=== PATIENT | female | born 1965 | race Caucasian/White ===

== ENCOUNTER 2018-07-09 00:32 | Emergency (ER) | payer BC ==
[2018-07-09] MEDS ORDERED: [UNRECOGNIZED DRUG - OTHER] PO (00:46)
--- NOTE | 2018-07-09 00:49 | ER Report ---
History and Physical Time Seen By MD: 00:49 Hx. of Stated Complaint: patient has had a pain that started up in the right upper quadrant of abdomen and then went to right flank and now kind of goes over to left flank as well. patient states the pain has been getting progressively worse and then 2 hours ago pain has become as so bad that patient cant get comfortable. HPI/ROS CHIEF COMPLAINT: right ruq and flank pain HISTORY OF PRESENT ILLNESS: This is a 53 year old female. She has had pain in the right upper abdomen starting off and on for a few days and thought this was rib or muscle pain. Worsened tonight, with pain in the right flank now as well. Worsens with movement and with deep breaths. Not short of breath, but somewhat difficult to take deep breaths. Has had mild nausea, no vomiting. She has no diarrhea, constipation or bowel problems. No urinary changes such as dysuria, frequency or urgency. No chest pain or palpitations. No fevers or chills. Mild cough, but no sore throat or runny nose. No history of gallbladder, liver, pancreatitis. No other musculoskeletal pain. Allergies: Coded Allergies: grass pollen (Verified Allergy, Intermediate, 07/09/18) Uncoded Allergies: tree pollen (Allergy, Intermediate, 07/09/18) Home Meds Reported Medications [acetane] No Conflict Check, 1 CAP PO BID for hot flashes 07/09/18 Reviewed Nurses Notes: Yes Constitutional Vital Sign - Last 24 Hours 07/09/18 00:41 Temp 98.1 Pulse 82 Resp 16 B/P (MAP) 153/88 Pulse Ox 94 O2 Delivery Room Air Physical Exam General Appearance: The patient is alert. No acute distress. Eyes: Pupils are equal, round. No pallor, injection or icterus. ENT: Mucous membranes are moist. Normal oral mucosa. Posterior oropharynx is normal. Neck: Supple and non tender. No lymphadenopathy. Respiratory: Lungs are clear to auscultation. Has some pain with deep breaths, but mild. Cardiovascular: Regular rate and rhythm. No murmurs, gallops or rubs. Normal capillary refill. Gastrointestinal: Abdomen is soft, tender in RUQ with positive Casiano sign. Nondistended. No rebound or guarding. Normal active bowel sounds. No costovertebral angle tenderness with percussion. Neurological: Alert and oriented x3. Skin: Warm and dry. No rashes. Musculoskeletal: No tenderness in palpation of the cervical, thoracic and lumbar spine. DIFFERENTIAL DIAGNOSIS: After history and physical exam, differential diagnosis was considered for abdominal pain including but not limited to appendicitis, cholecystitis, gastroenteritis, colitis, pulmonary embolism or cardiac problem, kidney stones and urinary tract infection. Medical Decision Making Data Points Result Diagram: 07/09/18 0124 07/09/18 0124 Laboratory Hematology Test 07/09/18 00:36 07/09/18 01:24 Urine Color Straw Urine Clarity Clear Urine pH 7.0 pH (4.8-9.5) Urine Specific [place] 1.004 Urine Protein Negative mg/dL (NEGATIVE) Urine Glucose (UA) Negative mg/dL (NEGATIVE) Urine Ketones Negative mg/dL (NEGATIVE) Urine Blood Negative (NEGATIVE) Urine Nitrite Negative (NEGATIVE) Urine Bilirubin Negative (NEGATIVE) Urine Urobilinogen Negative mg/dL (0.2-1.9) Urine Leukocyte Esterase Negative (NEGATIVE) Urine RBC 1 /HPF (0-2/HPF) Urine WBC <1 /HPF (0-5/HPF) Urine Squamous Epithelial Cells Few /LPF (</=FEW) Urine Bacteria Few /HPF (NONE-FEW) Urine Mucus None /HPF (NONE-FEW) Red Blood Count 5.16 M/uL (4.17-5.56) Mean Corpuscular Volume 92.3 fL (80.0-96.0) Mean Corpuscular Hemoglobin 31.6 pg (26.0-33.0) Mean Corpuscular Hemoglobin Concent 34.2 g/dL (32.0-36.0) Red Cell Distribution Width 14.1 % (11.5-14.5) Mean Platelet Volume 8.7 fL (7.2-11.1) Neutrophils (%) (Auto) 52.3 % (39.4-72.5) Lymphocytes (%) (Auto) 34.2 % (17.6-49.6) Monocytes (%) (Auto) 9.9 % (4.1-12.4) Eosinophils (%) (Auto) 2.2 % (0.4-6.7) Basophils (%) (Auto) 1.4 % (0.3-1.4) Nucleated RBC Relative Count (auto) 0.1 /100WBC Neutrophils # (Auto) 3.2 K/uL (2.0-7.4) Lymphocytes # (Auto) 2.1 K/uL (1.3-3.6) Monocytes # (Auto) 0.6 K/uL (0.3-1.0) Eosinophils # (Auto) 0.1 K/uL (0.0-0.5) Basophils # (Auto) 0.1 K/uL (0.0-0.1) Nucleated RBC Absolute Count (auto) 0.00 K/uL D-Dimer Quantitative (PE/DVT) < 0.27 ug/ml (0-0.50) Sodium Level 141 mmol/L (137-145) Potassium Level 3.8 mmol/L (3.5-5.0) Chloride Level 106 mmol/L (98-107) Carbon Dioxide Level 22 mmol/L (22-31) Blood Urea Nitrogen 10 mg/dl (7-18) Creatinine 0.60 mg/dl (0.52-1.04) Glomerular Filtration Rate Calc > 60.0 Random Glucose 85 mg/dl (75-110) Calcium Level 9.7 mg/dl (8.4-10.2) Total Bilirubin 0.4 mg/dl (0.2-1.3) Aspartate Amino Transf (AST/SGOT) 25 U/L (0-35) Alanine Aminotransferase (ALT/SGPT) 26 U/L (0-56) Alkaline Phosphatase 53 U/L (0-126) Troponin I < 0.012 ng/ml C-Reactive Protein < 0.5 mg/dl (<1.0) Total Protein 7.4 g/dl (6.3-8.2) Albumin 4.6 g/dl (3.5-5.0) Amylase Level 85 U/L (0-110) Lipase 86 U/L (23-300) Chemistry Test 07/09/18 00:36 07/09/18 01:24 Urine Color Straw Urine Clarity Clear Urine pH 7.0 pH (4.8-9.5) Urine Specific [place] 1.004 Urine Protein Negative mg/dL (NEGATIVE) Urine Glucose (UA) Negative mg/dL (NEGATIVE) Urine Ketones Negative mg/dL (NEGATIVE) Urine Blood Negative (NEGATIVE) Urine Nitrite Negative (NEGATIVE) Urine Bilirubin Negative (NEGATIVE) Urine Urobilinogen Negative mg/dL (0.2-1.9) Urine Leukocyte Esterase Negative (NEGATIVE) Urine RBC 1 /HPF (0-2/HPF) Urine WBC <1 /HPF (0-5/HPF) Urine Squamous Epithelial Cells Few /LPF (</=FEW) Urine Bacteria Few /HPF (NONE-FEW) Urine Mucus None /HPF (NONE-FEW) White Blood Count 6.1 k/uL (4.5-11.0) Red Blood Count 5.16 M/uL (4.17-5.56) Hemoglobin 16.3 g/dL (12.0-16.0) Hematocrit 47.6 % (34.0-47.0) Mean Corpuscular Volume 92.3 fL (80.0-96.0) Mean Corpuscular Hemoglobin 31.6 pg (26.0-33.0) Mean Corpuscular Hemoglobin Concent 34.2 g/dL (32.0-36.0) Red Cell Distribution Width 14.1 % (11.5-14.5) Platelet Count 310 K/uL (150-450) Mean Platelet Volume 8.7 fL (7.2-11.1) Neutrophils (%) (Auto) 52.3 % (39.4-72.5) Lymphocytes (%) (Auto) 34.2 % (17.6-49.6) Monocytes (%) (Auto) 9.9 % (4.1-12.4) Eosinophils (%) (Auto) 2.2 % (0.4-6.7) Basophils (%) (Auto) 1.4 % (0.3-1.4) Nucleated RBC Relative Count (auto) 0.1 /100WBC Neutrophils # (Auto) 3.2 K/uL (2.0-7.4) Lymphocytes # (Auto) 2.1 K/uL (1.3-3.6) Monocytes # (Auto) 0.6 K/uL (0.3-1.0) Eosinophils # (Auto) 0.1 K/uL (0.0-0.5) Basophils # (Auto) 0.1 K/uL (0.0-0.1) Nucleated RBC Absolute Count (auto) 0.00 K/uL D-Dimer Quantitative (PE/DVT) < 0.27 ug/ml (0-0.50) Glomerular Filtration Rate Calc > 60.0 Calcium Level 9.7 mg/dl (8.4-10.2) Total Bilirubin 0.4 mg/dl (0.2-1.3) Aspartate Amino Transf (AST/SGOT) 25 U/L (0-35) Alanine Aminotransferase (ALT/SGPT) 26 U/L (0-56) Alkaline Phosphatase 53 U/L (0-126) Troponin I < 0.012 ng/ml C-Reactive Protein < 0.5 mg/dl (<1.0) Total Protein 7.4 g/dl (6.3-8.2) Albumin 4.6 g/dl (3.5-5.0) Amylase Level 85 U/L (0-110) Lipase 86 U/L (23-300) Coagulation Test 07/09/18 01:24 D-Dimer Quantitative (PE/DVT) < 0.27 ug/ml Urinalysis Test 07/09/18 00:36 Urine Color Straw Urine Clarity Clear Urine pH 7.0 pH (4.8-9.5) Urine Specific [place] 1.004 Urine Protein Negative mg/dL (NEGATIVE) Urine Glucose (UA) Negative mg/dL (NEGATIVE) Urine Ketones Negative mg/dL (NEGATIVE) Urine Blood Negative (NEGATIVE) Urine Nitrite Negative (NEGATIVE) Urine Bilirubin Negative (NEGATIVE) Urine Urobilinogen Negative mg/dL (0.2-1.9) Urine Leukocyte Esterase Negative (NEGATIVE) Urine RBC 1 /HPF (0-2/HPF) Urine WBC <1 /HPF (0-5/HPF) Urine Squamous Epithelial Cells Few /LPF (</=FEW) Urine Bacteria Few /HPF (NONE-FEW) Urine Mucus None /HPF (NONE-FEW) EKG/Imaging EKG Interpretation 12 lead EKG: Rhythm: Sinus rhythm with sinus arrhythmia, rate 71 [place]: normal QRS: normal ST segments: normal Imaging ACUTE ABDOMEN SERIES 3 VIEW HISTORY: Right flank pain. COMPARISON: None available. FINDINGS: Lines/tubes: None. Bowel gas pattern: Moderate stool in the colon. Otherwise normal bowel gas pattern. Soft tissues: Negative. Bony structures: Mild degenerative changes in the lumbar spine with mild convex leftward curvature. Visualized lung bases: Negative. IMPRESSION: 1. Moderate stool in the colon. Otherwise normal bowel gas pattern. 2. No definite kidney stones. 3. No acute cardiopulmonary process. Report Dictated By: Aleksandr Celis MD at 07/09/2018 2:02 AM ED Course/Re-evaluation Clinical Indication for ER IV: Hydration, IV Access ED Course Labs unremarkable. EKG and imaging also negative. Discussed these results with the patient. We could have an ultrasound done for possible gallbladder disease, however, after discussing this option the patient would prefer not to do this at this time.. This is most likely musculoskeletal pain. Less likely pleuritic pain. See instructions below. Decision to Disposition Date: Jul 09, 2018 Decision to Disposition Time: 02:17 Depart Departure Latest Vital Signs Vital Signs Date Time Temp Pulse Resp B/P (MAP) Pulse Ox O2 Delivery O2 Flow Rate FiO2 07/09/18 00:41 98.1 82 16 153/88 94 Room Air Impression: Primary Impression: Musculoskeletal pain Condition: Improved Disposition: HOME OR SELF-CARE Patient Instructions: Musculoskeletal Pain (ED) Additional Instructions: Ibuprofen 200mg over the counter tablets, take 4 tablets three times a day with food. Apply ice 20 minutes every 1-2 hours while awake. Return for re-evaluation if not improving in the next 3-5 days. Return immediately for re-evaluation if you develop fever in addition to the pain. SHIRLENE QUAN MD Jul 09, 2018 00:49
[2018-07-09 01:30] LABS: PLATELET COUNT, AUTOMATED 310 K/uL (150-450)
[2018-07-09 02:00] VITALS: BP 125/77
--- NOTE | 2018-07-09 02:08 | RADIOLOGY IMAGING REPORT ---
FACILITY: [facility] PATIENT NAME: Katelynn Nichols : 1965 MR: [id number] V: [id number] EXAM DATE: ORDERING PHYSICIAN: SHIRLENE QUAN TECHNOLOGIST: Location: [facility] - [place] Patient: Katelynn Nichols : 1965 Visit/Account:[id number] Date of Sevice: 07/09/2018 ACUTE ABDOMEN SERIES 3 VIEW HISTORY: Right flank pain. COMPARISON: None available. FINDINGS: Lines/tubes: None. Bowel gas pattern: Moderate stool in the colon. Otherwise normal bowel gas pattern. Soft tissues: Negative. Bony structures: Mild degenerative changes in the lumbar spine with mild convex leftward curvature. Visualized lung bases: Negative. IMPRESSION: 1. Moderate stool in the colon. Otherwise normal bowel gas pattern. 2. No definite kidney stones. 3. No acute cardiopulmonary process. Report Dictated By: Aleksandr Celis MD at 07/09/2018 2:02 AM Report E-Signed By: Aleksandr Celis MD at 07/09/2018 2:04 AM WSN:[id number]
--- NOTE | 2018-07-09 05:50 | EKG ---
FACILITY: [facility] - [place] PATIENT NAME: JEFFREY MATSON : [id number] MR: [id number] V: [id number] EXAM DATE: ORDERING PHYSICIAN: SHIRLENE QUAN TECHNOLOGIST: DANIKA Test Reason : CARDIAC Blood Pressure : / mmHG Vent. Rate : 071 BPM Atrial Rate : 071 BPM P-R Int : 144 ms QRS Dur : 080 ms QT Int : 416 ms P-R-T Axes : 068 079 050 degrees QTc Int : 452 ms Sinus rhythm with marked sinus arrhythmia Possible Left atrial enlargement Borderline ECG No previous ECGs available Confirmed by ROSLYN GARCIA ([id number]) on 07/09/2018 6:31:51 AM Referred By: Confirmed By:ROSLYN GARCIA
== END 2018-07-09 02:44 | disposition home or self-care (01) ==
LOC: ER 01:05
DX: M79.18 Myalgia, other site (principal)
CPT/HCPCS: 74022; 81001; 82040; 82150; 82247; 82310; 82374; 82435; 82565; 82947; 83690; 84075; 84132; 84155; 84295; 84450; 84460; 84484; 84520; 85025; 85379; 86140; 93005; 99284